=== PATIENT | male | born 1955 | race Caucasian/White ===

== ENCOUNTER 2022-01-22 20:17 | Observation (INO) ==
[2022-01-22] MEDS ORDERED: HYDROmorphone 1 MG/1 ML SYRINGE IV STA ×2 (20:54→23:15)
[2022-01-22] MEDS ORDERED: ONDANSETRON 4 MG/2 ML VIAL IV STA (20:54)
[2022-01-22] MEDS ORDERED: PIPERACILLIN/TAZOBACTAM 3,375 MG in SODIUM CHLORIDE 0.9% 100 ML IV STA (20:54)
[2022-01-22] MEDS ORDERED: SODIUM CHLORIDE 0.9% 500 ML IV STA (20:54)
[2022-01-22 21:30] LABS: Basophils % 0.2 % (0.0-0.8); Eosinophils # 0.1 10*3/uL (0.0-0.87); Eosinophils % 0.7 % (0.00-10.9); Hematocrit 44.7 VOL% (42.0-52.0); Hemoglobin 14.9 GM/DL (14.0-18.0); Immature Granulocytes % 0.3 %; Immature Granulocytes Absolute 0.03 #; Lymphocytes # 1.9 10*3/uL (1.4-4.0); Lymphocytes % 19.4 % (21.2-54.2); Mean Corpuscular HGB Conc 33.3 GM/DL (32-36); Mean Corpuscular Volume 101.8 FL (87-102); Mean Platelet Volume 10.7 FL (9.6-12.0); Monocytes % 10.9 % (1.7-12.7); Neutrophils % 68.5 % (38.7-73.9); Platelet Count 178 T/CUMM (130-400); Red Blood Count 4.39 MC/CUMM (3.8-5.5); Red Cell Distribution Width 13.2 % (9.3-17.3); White Blood Count 9.6 T/CUMM (4-12)
[2022-01-22 21:57] LABS: Mucus,Urine Occasional /LPF (Occasional); RBC,Urine 50 /HPF (0-4); Squamous Epithelial Cell,Urine Occasional /HPF (0-10)
[2022-01-22 21:59] LABS: Albumin 3.7 G/DL (3.4-5.0); Bilirubin,Total 1.3 MG/DL (0.20-1.00); Osmolality,Calculated 276.5 MOS/KG (273-304); Potassium 3.7 MMOL/L (3.5-5.1); Total Protein 6.6 G/DL (6.4-8.2)
[2022-01-22 22:05] LABS: Bilirubin,Urine Negative (Negative); Blood, Urine Moderate mg/dL (Negative); Glucose,Urine (UA) Negative (Negative); Ketones,Urine Negative (Negative); Nitrite,Urine Negative (Negative); Protein,Urine Negative (Negative); Urine Appearance Clear (Clear); Urine Color Yellow (Yellow); Urine Urobilinogen 0.2 eU/dL (<2.0); Urine pH 5.5 (4.5-8.0)
[2022-01-22] MEDS ORDERED: MORPHINE 2 MG/1 ML SYRINGE IV PRN (23:55)
[2022-01-23] MEDS ORDERED: guaiFENesin/DM ER 600-30 MG TABLET PO PRN (00:01)
[2022-01-23] MEDS ORDERED: hydrALAZINE 20 MG/1 ML VIAL IV PRN (00:01)
[2022-01-23] MEDS ORDERED: ZALEPLON 5 MG CAPSULE PO PRN (00:01)
[2022-01-23] MEDS ORDERED: ACETAMINOPHEN 325 MG TABLET PO PRN (00:01)
[2022-01-23] MEDS ORDERED: ONDANSETRON 4 MG/2 ML VIAL IV PRN (00:01)
[2022-01-23] MEDS ORDERED: DOCUSATE SODIUM 100 MG CAPSULE PO PRN (00:01)
[2022-01-23] MEDS ORDERED: NICOTINE 21 MG/24 HR PATCH TRANSDERM PRN (00:01)
[2022-01-23] MEDS ORDERED: diphenhydrAMINE CAP 25 MG CAPSULE PO PRN (00:01)
[2022-01-23] MEDS ORDERED: GLUCAGON 1 MG VIAL IM PRN ×2 (00:01→01:01)
[2022-01-23] MEDS ORDERED: DEXTROSE 10% 250 ML BAG IV PRN ×2 (00:06→01:19)
[2022-01-23] MEDS ORDERED: BENZONATATE 100 MG CAPSULE PO PRN (00:51)
[2022-01-23] MEDS: metroNIDAZOLE INJ 500 MG/100 ML PREMIX IV SCH ×3 (01:18→15:18)
[2022-01-23] MEDS: SODIUM CHLORIDE 0.9% 1,000 ML IV SCH ×2 (01:18→18:56)
[2022-01-23 05:39] LABS: Basophils % 0.1 % (0.0-0.8); Eosinophils # 0.1 10*3/uL (0.0-0.87); Hematocrit 38.9 VOL% (42.0-52.0); Immature Granulocytes % 0.2 %; Immature Granulocytes Absolute 0.02 #; Lymphocytes % 24.9 % (21.2-54.2); Mean Corpuscular HGB Conc 33.4 GM/DL (32-36); Mean Corpuscular Volume 101.8 FL (87-102); Mean Platelet Volume 10.9 FL (9.6-12.0); Monocytes # 0.9 10*3/uL (0.11-0.8); Monocytes % 10.9 % (1.7-12.7); Neutrophils % 62.9 % (38.7-73.9); Platelet Count 145 T/CUMM (130-400); Red Blood Count 3.82 MC/CUMM (3.8-5.5); Red Cell Distribution Width 13.2 % (9.3-17.3)
[2022-01-23 06:05] LABS: Albumin 2.9 G/DL (3.4-5.0); Bilirubin,Total 1.3 MG/DL (0.20-1.00); Calcium 8.8 MG/DL (8.5-10.1); Osmolality,Calculated 277.5 MOS/KG (273-304); Potassium 3.2 MMOL/L (3.5-5.1)
[2022-01-23] MEDS: HYDROmorphone 1 MG/1 ML SYRINGE IV PRN ×3 (08:52→23:15)
[2022-01-23] MEDS: amLODIPine 10 MG TABLET PO SCH (08:54)
[2022-01-23] MEDS: ROSUVASTATIN 20 MG TABLET PO SCH (08:59)
[2022-01-23] MEDS ORDERED: ENOXAPARIN 40 MG/0.4 ML SYRINGE SUBCUT SCH (09:00)
[2022-01-23] MEDS: SOTALOL 80 MG TABLET PO SCH ×2 (09:05→20:44)
[2022-01-23] MEDS: LOSARTAN 50 MG TABLET PO SCH (09:05)
[2022-01-23] MEDS: POTASSIUM CHLORIDE 10 MEQ TABLET PO SCH (09:05)
[2022-01-23] MEDS: PANTOPRAZOLE 40 MG TABLET PO SCH (09:06)
[2022-01-23] MEDS: FUROSEMIDE 40 MG TABLET PO SCH (09:12)
[2022-01-23] MEDS: INSULIN LISPRO 100 UNIT/ML SUBCUT SCH ×5 (09:13→20:45)
[2022-01-23] MEDS: ENOXAPARIN 150 MG/ML SYRINGE SUBCUT SCH ×2 (09:37→20:45)
[2022-01-23] MEDS: POTASSIUM CHLORIDE 20 MEQ TABLET PO PRN ×4 (10:03→16:20)
[2022-01-23] MEDS: cefTRIAXone 1,000 MG in SODIUM CHLORIDE 0.9% 100 ML IV SCH (10:03)
[2022-01-23] MEDS ORDERED: FENOFIBRATE 160 MG TABLET PO SCH (21:00)
[2022-01-24] MEDS: metroNIDAZOLE INJ 500 MG/100 ML PREMIX IV SCH ×2 (00:23→09:17)
[2022-01-24 06:02] LABS: Basophils % 0.4 % (0.0-0.8); Eosinophils # 0.1 10*3/uL (0.0-0.87); Eosinophils % 2.3 % (0.00-10.9); Hematocrit 38.7 VOL% (42.0-52.0); Hemoglobin 12.8 GM/DL (14.0-18.0); Immature Granulocytes % 0.6 %; Immature Granulocytes Absolute 0.03 #; Lymphocytes # 1.6 10*3/uL (1.4-4.0); Lymphocytes % 32.2 % (21.2-54.2); Mean Corpuscular HGB Conc 33.1 GM/DL (32-36); Mean Corpuscular Volume 102.9 FL (87-102); Mean Platelet Volume 10.5 FL (9.6-12.0); Monocytes # 0.5 10*3/uL (0.11-0.8); Neutrophils % 53.5 % (38.7-73.9); Platelet Count 127 T/CUMM (130-400); Red Blood Count 3.76 MC/CUMM (3.8-5.5); Red Cell Distribution Width 13.2 % (9.3-17.3); White Blood Count 4.8 T/CUMM (4-12)
[2022-01-24 06:18] LABS: Calcium 8.7 MG/DL (8.5-10.1); Osmolality,Calculated 277.4 MOS/KG (273-304); Potassium 3.5 MMOL/L (3.5-5.1)
[2022-01-24] MEDS: amLODIPine 10 MG TABLET PO SCH (09:09)
[2022-01-24] MEDS: POTASSIUM CHLORIDE 10 MEQ TABLET PO SCH (09:09)
[2022-01-24] MEDS: FUROSEMIDE 40 MG TABLET PO SCH (09:09)
[2022-01-24] MEDS: SOTALOL 80 MG TABLET PO SCH (09:09)
[2022-01-24] MEDS: PANTOPRAZOLE 40 MG TABLET PO SCH (09:09)
[2022-01-24] MEDS: LOSARTAN 50 MG TABLET PO SCH (09:09)
[2022-01-24] MEDS: INSULIN LISPRO 100 UNIT/ML SUBCUT SCH ×2 (09:10→11:14)
[2022-01-24] MEDS: ROSUVASTATIN 20 MG TABLET PO SCH (09:16)
[2022-01-24] MEDS: ENOXAPARIN 150 MG/ML SYRINGE SUBCUT SCH (09:21)
[2022-01-24] MEDS: cefTRIAXone 1,000 MG in SODIUM CHLORIDE 0.9% 100 ML IV SCH (10:50)
[2022-01-24 11:50] VITALS: BP 111/68
== END 2022-01-24 14:09 | disposition home or self-care (01) ==
LOC: N.ED 20:17 → N.EDINP 20:17 → N.5E 01-23 02:38
PROVIDERS: ADMIT Internal Medicine; ATTEND Internal Medicine